=== PATIENT | male | born 1955 | race Caucasian/White ===

== ENCOUNTER → 2023-09-04 11:35 | Outpatient (REF) | payer MEDICARE, BC, SELFPAY | LOC: REG 11:35 | PROVIDERS: ATTENDING PHYSICIAN Specialist; FAMILY PHYSICIAN Internal Medicine | DX: R97.20 Elevated prostate specific antigen [PSA] (principal) | CPT/HCPCS: 36415; 84153 ==

== ENCOUNTER → 2024-02-29 08:52 | Outpatient (REF) | payer MEDICARE, BC, SELFPAY ==
[2024-02-29 11:00] LABS: PSA, Total - Diagnostic 5.55 ng/ml (0.0-4.0)
== END ==
LOC: REG 08:52
PROVIDERS: ATTENDING PHYSICIAN Specialist
DX: R97.20 Elevated prostate specific antigen [PSA] (principal)
CPT/HCPCS: 36415; 84153

== ENCOUNTER → 2024-09-09 13:44 | Outpatient (REF) | payer MEDICARE, BC, SELFPAY | LOC: REG 13:44 | PROVIDERS: ATTENDING PHYSICIAN Specialist; FAMILY PHYSICIAN Nurse Practitioner Adult Health | DX: R97.20 Elevated prostate specific antigen [PSA] (principal) | CPT/HCPCS: 36415; 84153 ==

== ENCOUNTER → 2024-09-27 14:03 | Outpatient (REF) | payer MEDICARE, BC, SELFPAY | LOC: REG 14:03 | PROVIDERS: ATTENDING PHYSICIAN Specialist; FAMILY PHYSICIAN Nurse Practitioner Adult Health | DX: R97.20 Elevated prostate specific antigen [PSA] (principal) | CPT/HCPCS: 36415; 84153 ==

== ENCOUNTER → 2024-11-22 10:12 | Outpatient (REF) | payer MEDICARE, BC, SELFPAY ==
[2024-11-22 12:11] LABS: % Basophils 0.7 % (0-2); % Eosinophils 0.6 % (0-6); % Immature Granulocytes 0.3 % (0-0.5); % Monocytes 9.8 % (1.7-9.3); % Neutrophils 79.6 % (42.2-75.2); Absolute Basophils 0.1 10^3/uL (0-0.2); Absolute Eosinophils 0.1 10^3/uL (0-0.7); Absolute Lymphocytes 0.8 10^3/uL (1.2-3.4); Absolute Monocytes 0.9 10^3/uL (0.1-0.6); Absolute Neutrophils 6.9 10^3/uL (1.4-6.5); Hematocrit 42.4 % (39.0-52.0); Mean Corp Hgb Conc. 35.4 g/dL (33.0-37.0); Mean Corpuscular Hgb 32.3 pg (27.0-31.0); Mean Corpuscular Volume 91.2 fL (80.0-94.0); Mean Platelet Volume 10.8 fL (7.4-10.4); Nucleated Red Blood Cells % 0 % (-); Platelet Count 243 10^3/uL (130-400); Red Blood Cell Count 4.65 10^6/uL (4.70-6.10); Red Cell Dist. Width 12.3 % (11.5-14.5); White Blood Cell Count 8.6 10^3/uL (4.8-10.8)
[2024-11-22 12:52] LABS: ALT (SGPT) 29 U/L (0-50); AST (SGOT) 26 U/L (17-59); Albumin 4.8 g/dl (3.5-5.0); Alkaline Phosphatase 84 U/L (38-126); Blood Urea Nitrogen 10 mg/dl (9-20); Calcium 9.6 mg/dl (8.4-10.2); Carbon Dioxide 24 mmol/L (22-30); Chloride 104 mmol/L (98-107); Glucose 93 mg/dl (70-99); Lipase 390 U/L (23-300); Potassium 4.8 mmol/L (3.5-5.1); Sodium 139 mmol/L (135-145); Total Bilirubin 2.2 mg/dl (0.2-1.3); Total Protein 7.5 g/dl (6.3-8.2); eGFR > 60.00
[2024-11-22 13:07] LABS: TSH 0.35 uIU/ml (0.47-4.68)
[2024-11-22 17:24] LABS: Direct Bilirubin 0.3 mg/dl (0.0-0.4)
[2024-11-24 23:32] LABS: IgA 198 mg/dl (70-400)
[2024-11-25 01:14] LABS: H. pylori Breath Test Negative (Negative)
== END ==
LOC: REG 10:12
PROVIDERS: ATTENDING PHYSICIAN Internal Medicine Gastroenterology; FAMILY PHYSICIAN Nurse Practitioner Adult Health
DX: R10.30 Lower abdominal pain, unspecified (principal); R63.4 Abnormal weight loss
CPT/HCPCS: 36415; 80053; 82248; 82784; 83013; 83516; 83690; 84443; 85025; 86231

== ENCOUNTER → 2024-11-25 11:19 | Outpatient (REF) | payer MEDICARE, BC, SELFPAY | LOC: REG 11:19 | PROVIDERS: ATTENDING PHYSICIAN Internal Medicine Gastroenterology; FAMILY PHYSICIAN Nurse Practitioner Adult Health | DX: R10.30 Lower abdominal pain, unspecified (principal) | CPT/HCPCS: 82653; 83993; 87338; 89055 ==

== ENCOUNTER → 2025-03-10 11:37 | Outpatient (REF) | payer MEDICARE, BC, SELFPAY ==
[2025-03-10 15:18] LABS: PSA, Total - Diagnostic 2.06 ng/ml (0.0-4.0)
== END ==
LOC: REG 11:37
PROVIDERS: ATTENDING PHYSICIAN Specialist; FAMILY PHYSICIAN Nurse Practitioner Adult Health
DX: R97.20 Elevated prostate specific antigen [PSA] (principal)
CPT/HCPCS: 36415; 84153